=== PATIENT | male | born 1985 | race Caucasian/White ===

== ENCOUNTER 2024-04-28 09:25 | Outpatient (AMB) | payer OTHER, SELFPAY ==
[2024-04-28 09:33] VITALS: BP 108/60; PULSE 92; RESP 13; O2SAT 99; BMI 24.4
--- NOTE | 2024-04-28 09:33 | MHC.PC.OV ---
Vital Signs 04/28/24 09:33 Height 5 ft 6 in Weight 151 lb BMI 24.4 BP 108/60 Blood Pressure Location Lt brachial Position Sitting Respiration 13 Pulse 92 Pulse Source Pulse Oximeter Pulse Oximetry (%) 99 Oxygen Delivery Method Room Air Intake Visit Reasons: Est care/headaches Intake Note: Patient is here to establish care. Patient reports he is fasting if labs are needed today. Patient reports he has been experiencing headaches initiated with sobriety. Patient reports he associates the headaches with how I used to feel hung over, like there was a hole in my head. Patient states he has 2-3 headaches per week. Patient states he is not prescribed any medication however, his brother had sumatriptan, which helped with his headaches. Meat Molder Required: No Accompanied by: Self / Same As Patient Allergies codeine [Codeine] Allergy (Unknown, Unverified 03/06/23 16:37) VIOLENTLY ILL Tobacco use date assessed: 04/28/24 Dental Screening Dental Screen Date: 04/28/24 Did you have a dental visit in the last 12 months?: No Did you have a dental problem in the last 6 months where you did not have access to dental care?: No Was dental information given to patient?: Patient declined HPI HPI Comments History of Present Illness Details The patient is a 39 year old male with a past medical history of alcohol use, headaches presenting to establish care. Transferring from Dr Britton. Patient stopped drinking about 1.5 years. Since then he has noticed migraine like headaches 3x/week. Usually wakes up with headache. Sometimes feels off balance in the morning. Most often left temporal, pounding on dull, no vision changes. Last for hours. Used to use tylenol and ibuprofen with some relief but stopped working. Has used sumatriptan-if uses right at outset helps. Not supersenstive to light sound but if retracts from this does improve. Last eye exam 2021. Girlfriend says does not snore a lot. Kidney issues when younger. Wants to check labs. ROS see HPI PHYSICAL EXAM: GENERAL: Alert and oriented x 3. NAD EYES: EOMI. Anicteric. HENT: Moist mucous membranes. No scleral icterus. No cervical lymphadenopathy. LUNGS: Clear to auscultation bilaterally. CARDIOVASCULAR: Regular rate and rhythm. No murmur. No JVD. ABDOMEN: Soft, non-tender +bs EXTREMITIES: No edema. Non-tender. SKIN: No rashes or lesions. Warm. NEUROLOGIC: No focal neurological deficits. CN II-XII grossly intact PSYCHIATRIC: Cooperative. Appropriate mood and affect [facility] Medical History Alcoholism in recovery Depression Anxiety Ureter injury Surgical History History of ureter repair Family History Mother Thyroid disease Father Diabetes Cancer Paternal Grandmother Diabetes Cancer Paternal Grandfather Cancer Brother Thyroid disease Alcoholism Social History Household Members: None Housing: House Alcohol intake: former Year quit: 2022 Patient Tobacco Use Status: Never used Tobacco e-Cigarette/Vaping Use: Never Used service: No Current occupational status: employed Current occupation: Furniture store Cognitive needs: No Hearing needs: No Vision needs: Yes (wears glasses) Questionnaire PHQ-9 Over the last 2 weeks, how often have you been bothered by any of the following problems? 1. Little interest or pleasure in doing things: several days 2. Feeling down, depressed, or hopeless: several days 3. Trouble falling or staying asleep, or sleeping too much: several days 4. Feeling tired or having little energy: several days 5. Poor appetite or overeating: several days 6. Feeling bad about yourself - or that you are a failure or have let yourself or your family down: several days 7. Trouble concentrating on things, such as reading the newspaper or watching television: several days 8. Moving or speaking so slowly that other people could have noticed. Or the opposite - being so fidgety or restless that you have been moving around a lot more than usual: several days 9. Thoughts that you would be better off or of hurting yourself in some way: not at all Total score: 8 Depression Screening Interpretation: Positive Depression Screening Follow-up: Existing condition Depression Screening Done: Yes 36238 - PHQ-9 Billing: Yes Source: Developed by Drs. Akbar Alfaro, Sabiha B.Velasquez Pham and colleagues, with an educational rose marie from [employer]. Thrive Questionnaire Date Thrive assessed: 04/28/24 I am a: Patient What is your living situation today?: I have a steady place to live Within the past 12 months, did the food you bought not last and you didn't have the money to get more?: Never true Within the past 12 months, did you worry whether your food would run out before you got money to buy more?: Never true Do you have trouble paying for medicines?: No Do you have trouble getting transportation to medical appointments?: No Do you have trouble paying your heating and electricity bill?: No Do you have trouble taking care of your child, family member or friend?: No Do you have trouble with day-to-day activities such as bathing, preparing meals, shopping, managing finances, etc.?: No Are you currently unemployed and looking for a job?: No Are you interested in more education?: No Please select the resources that you would like help with: None Currently or been in a relationship where the following occur: No concerns reported THRIVE Score: 0 AUDIT C Alcohol Use Questionnaire (AUDIT-C) 1. How often do you have a drink containing alcohol?: Never 3. How often do you have six or more drinks on one occasion?: Never Total Score: 0 KEITH-7 AMB Questionnaire KEITH-7 Date KEITH - 7 assessed: 04/28/24 Feeling nervous, anxious, or on edge: 1 = Several days Not being able to stop or control worryin = Several days Worrying too much about different things: 1 = Several days Trouble relaxin = Several days Being so restless that it is hard to sit still: 1 = Several days Becoming easily annoyed or irritable: 1 = Several days Feeling afraid as if something awful might happen: 1 = Several days Total KEITH-7 score (0-4 normal; 5-9 mild; 10-14 moderate; 15-21 severe): 7 Source: Developed by Drs. Akbar Alfaro, Velasquez León and colleagues, with an educational rose marie from [employer]. KEITH-7 Assessment Billing KEITH-7 Assessment Tool: KEITH-7 Assessment 14109 Physical exam (Primary Care) Vital Signs: Last Vital Signs Pulse 92 04/28/24 09:33 Resp 13 04/28/24 09:33 BP 108/60 04/28/24 09:33 Pulse Ox 99 04/28/24 09:33 Oxygen Delivery Method Room Air 04/28/24 09:33 BMI result Body Mass Index 24.4 Tobacco/Smoking Status: Tobacco use Status Tobacco use date assessed 04/28/24 04/28/24 09:49 Patient Tobacco Use Status Never used Tobacco 04/28/24 09:57 e-Cigarette/Vaping Use Never Used 04/28/24 09:57 PHQ-9: PHQ-9 Score PHQ-9: Total score 8 05/03/24 10:36 Depression Screening Interpretation: Positive Depression Screening Follow-up: Existing condition Thrive Assessment: Date of Thrive Assessment Date Thrive assessed 04/28/24 04/28/24 09:49 Currently or been in a relationship where the following occur: No concerns reported Assessment and Plan Assessment & Plan (1) Encounter to establish care: Code(s): Z76.89 - Persons encountering health services in other specified circumstances Plan: 39 y/o to establish care. past medical, surgical, social and family history reviewed. chart updated (2) Alcoholism in recovery: Comment: 472 days sober -04/28/24 Code(s): F10.21 - Alcohol dependence, in remission (3) Increased severity of headaches: Code(s): R51.9 - Headache, unspecified (4) Increased frequency of headaches: Code(s): R51.9 - Headache, unspecified (5) Screening for metabolic disorder: Code(s): Z13.228 - Encounter for screening for other metabolic disorders (6) New onset headache: Code(s): R51.9 - Headache, unspecified Plan: MRI ordered. Labs ordered. Orders: Orders Lipid Panel 04/28/24 R51.9 - Headache, unspecified, Z13.0 - Encounter for screening for diseases of the blood and blood-forming organs and certain disorders involving the immune mechanism, Z13.220 - Encounter for screening for lipoid disorders, Z13.228 - Encounter for screening for other metabolic disorders Lyme IgG/IgM w/reflex to WB 04/28/24 R51.9 - Headache, unspecified, Z13.0 - Encounter for screening for diseases of the blood and blood-forming organs and certain disorders involving the immune mechanism, Z13.220 - Encounter for screening for lipoid disorders, Z13.228 - Encounter for screening for other metabolic disorders TSH reflex Free T4 04/28/24 R51.9 - Headache, unspecified, Z13.0 - Encounter for screening for diseases of the blood and blood-forming organs and certain disorders involving the immune mechanism, Z13.220 - Encounter for screening for lipoid disorders, Z13.228 - Encounter for screening for other metabolic disorders Complete Blood Count Auto Diff 04/28/24 R51.9 - Headache, unspecified, Z13.0 - Encounter for screening for diseases of the blood and blood-forming organs and certain disorders involving the immune mechanism, Z13.220 - Encounter for screening for lipoid disorders, Z13.228 - Encounter for screening for other metabolic disorders Comprehensive Met. Panel 04/28/24 R51.9 - Headache, unspecified, Z13.0 - Encounter for screening for diseases of the blood and blood-forming organs and certain disorders involving the immune mechanism, Z13.220 - Encounter for screening for lipoid disorders, Z13.228 - Encounter for screening for other metabolic disorders MR head/brain wo con 04/28/24 R51.9 - Headache, unspecified Medications: New sumatriptan succinate take 1 tab at onset of headache; if no relief, may repeat 1 tab after at least 2 hrs; max = 2 tabs/24 hrs PO 30 tabs 5RF Coding Level of Care Code New Pt Level 4 (05098) Diagnoses Encounter to establish care Z76.89 Alcoholism in recovery F10.21 Increased severity of headaches R51.9 Increased frequency of headaches R51.9 Screening for metabolic disorder Z13.228 New onset headache R51.9 Additional Codes KEITH-7 Assessment Billing - KEITH-7 Assessment Tool: KEITH-7 Assessment [id number] ([id number])
== END 2024-04-28 10:23 | disposition home or self-care (01) ==
PROVIDERS: PCP Internal Medicine; Visit Provider Internal Medicine
DX: R51.9 Headache, unspecified (principal); F10.21 Alcohol dependence, in remission; Z76.89 Persons encountering health services in other specified circumstances; Z13.228 Encounter for screening for other metabolic disorders
CPT/HCPCS: 99204

== ENCOUNTER 2024-04-28 10:49 | Outpatient (REF) | payer OTHER, SELFPAY ==
[2024-04-28 14:27] LABS: MANUAL DIFF FLAG NO
[2024-04-28 14:33] LABS: Basophils Absolute Auto 0.1 X10*3/uL (0.0-0.2); Basophils Percent Auto 1.3 % (0-2); Eosinophils Absolute Auto 0.1 X10*3/uL (0.0-0.4); Eosinophils Percent Auto 1.3 % (0-4); Hematocrit 43.4 % (42.0-52.0); Imm Gran Abs Auto 0.03 X10*3/uL (0.00-0.03); Imm Gran Pct Auto 0.7 % (0.0-0.4); Lymphocytes Absolute Auto 1.2 X10*3/uL (1.2-4.9); Lymphocytes Percent Auto 27.4 % (20-40); Mean Corpuscular HGB Conc 34.6 g/dl (31.0-36.0); Mean Corpuscular Hemoglobin 30.7 pg (27.0-33.0); Mean Corpuscular Volume 88.9 fL (80.0-98.0); Monocytes Absolute Auto 0.5 X10*3/uL (0.1-1.2); Monocytes Percent Auto 10.8 % (2-11); Neutrophils Absolute Auto 2.6 x10*3/uL (2.0-8.3); Neutrophils Percent Auto 58.5 % (45-73); Platelet Count 221 X10*3/uL (160-400); Red Blood Count 4.88 X10*6/uL (4.60-5.80); Red Cell Distribution Width 12.3 % (11.0-16.0); White Blood Count 4.5 X10*3/uL (4.8-10.8)
[2024-04-28 14:49] LABS: Alanine Aminotransferase 13 U/L (0-40); Albumin Level 4.6 g/dL (3.5-5.0); Alkaline Phosphatase 75 U/L (39-117); Anion Gap 11 (12-20); Aspartate Amino Transferase 16 U/L (5-37); Bilirubin Total 0.6 mg/dL (0.0-1.0); Blood Urea Nitrogen 11 mg/dL (9-16); Calcium 9.5 mg/dL (8.4-10.2); Carbon Dioxide 27 mmol/L (22-29); Chloride 105 mmol/L (96-108); Cholesterol 209 mg/dL (<200); Estimated Glomerular Filt Rate > 60; Glucose Random 91 mg/dL (60-115); HDL Cholesterol 53 mg/dL (>40); LDL Cholesterol Calculated 143 mg/dL (<100); Potassium 4.1 mmol/L (3.3-5.1); Sodium 139 mmol/L (135-145); Total Protein 7.4 g/dL (6.5-8.0); Triglycerides 67 mg/dL (<150)
[2024-04-28 15:08] LABS: TSH reflex Free T4 1.21 uIU/mL (0.32-4.0)
[2024-04-29 22:13] LABS: Lyme Abs Screen <0.90 index
== END 2024-04-28 10:50 | disposition home or self-care (01) ==
LOC: HO.WFDLDS 10:49
PROVIDERS: Visit Provider Internal Medicine
DX: R51.9 Headache, unspecified (principal); Z13.0 Encounter for screening for diseases of the blood and blood-forming organs and certain disorders involving the immune mechanism; Z13.220 Encounter for screening for lipoid disorders; Z13.228 Encounter for screening for other metabolic disorders
CPT/HCPCS: 36415; 80053; 80061; 84443; 85025; 86617; 86618

== ENCOUNTER 2024-06-19 11:13 | Outpatient (REF) | payer OTHER, SELFPAY ==
--- NOTE | ~2024-06-19 | MR_ITS ---
MRI OF THE BRAIN WITHOUT IV CONTRAST INDICATION: Headache. COMPARISON: None available. Her her TECHNIQUE: Multiplanar multisequence MR imaging of the brain was obtained without IV contrast. FINDINGS: There is no hydrocephalus, extra-axial surface collection, or herniation. No parenchymal signal abnormality. The major flow voids at the skull base are preserved. There is no acute infarct on diffusion-weighted imaging. There is no intracranial hemorrhage on the gradient recalled echo acquisition. The midline structures are normal. The cerebellar tonsils are normally positioned. The cerebellum and brainstem are normal. The craniocervical junction is normal. Osseous marrow signal intensity is homogenous. The visualized soft tissues are unremarkable. There is moderate mucosal thickening right maxillary sinus and the remaining paranasal sinuses are clear. The mastoid air cells are clear. MR/MR head/brain wo con IMPRESSION: * Unremarkable noncontrast MRI of the brain * There is moderate mucosal thickening within the right maxillary sinus. Electronically signed by: Andre Candelaria MD 07/08/2024 03:02 PM EDT
== END 2024-06-19 11:14 | disposition home or self-care (01) ==
LOC: HO.MRI 11:13
PROVIDERS: PCP Internal Medicine; Visit Provider Internal Medicine
DX: R51.9 Headache, unspecified (principal)
CPT/HCPCS: 70551

== ENCOUNTER 2024-09-28 10:57 | Outpatient (AMB) | payer OTHER, SELFPAY ==
--- NOTE | 2024-09-28 11:35 | AM.OFFVISMDC ---
Intake Intake Visit Reasons: annual pe Allergies codeine [Codeine] Allergy (Unknown, Unverified 03/06/23 16:37) VIOLENTLY ILL [facility] Medical History Alcoholism in recovery Depression Anxiety Ureter injury Surgical History History of ureter repair Family History Mother Thyroid disease Father Diabetes Cancer Paternal Grandmother Diabetes Cancer Paternal Grandfather Cancer Brother Thyroid disease Alcoholism Social History Household Members: None Housing: House 75 years or older and lives alone: No Alcohol intake: former Year quit: 2022 Patient Tobacco Use Status: Never used Tobacco e-Cigarette/Vaping Use: Never Used service: No Current occupational status: employed Current occupation: Furniture store Cognitive needs: No Hearing needs: No Vision needs: Yes (wears glasses) Questionnaire PHQ-9 Over the last 2 weeks, how often have you been bothered by any of the following problems? 1. Little interest or pleasure in doing things: not at all 2. Feeling down, depressed, or hopeless: several days 3. Trouble falling or staying asleep, or sleeping too much: not at all 4. Feeling tired or having little energy: several days 5. Poor appetite or overeating: not at all 6. Feeling bad about yourself - or that you are a failure or have let yourself or your family down: not at all 7. Trouble concentrating on things, such as reading the newspaper or watching television: not at all 8. Moving or speaking so slowly that other people could have noticed. Or the opposite - being so fidgety or restless that you have been moving around a lot more than usual: not at all 9. Thoughts that you would be better off or of hurting yourself in some way: not at all Total score: 2 Source: Developed by Drs. Akbar Alfaro, Sabiha Corrales, Velasquez Sanchez and colleagues, with an educational rose marie from [employer]. Quality Reporting (2019) Depression/Bipolar (159/160/161/177) PHQ-9: Total score: 2 Coding
[2024-09-28 11:40] VITALS: BP 102/70; PULSE 77; O2SAT 99; BMI 25.2
--- NOTE | 2024-09-28 11:40 | MHC.PC.OV ---
Vital Signs 09/28/24 11:40 Height 5 ft 6 in Weight 156 lb 2 oz BMI 25.2 BP 102/70 Blood Pressure Location Lt brachial Position Sitting Pulse 77 Pulse Source Pulse Oximeter Pulse Oximetry (%) 99 Oxygen Delivery Method Room Air Intake Visit Reasons: annual pe Intake Note: Physical. Still having migraines 3-4 times a week. Retaining Room Cutter Required: No Allergies codeine [Codeine] Allergy (Unknown, Verified 09/28/24 11:39) VIOLENTLY ILL Tobacco use date assessed: 04/28/24 Dental Screening Dental Screen Date: 04/28/24 HPI HPI Comments History of Present Illness Details The patient is a 39 year old male with a past medical history of alcohol use, headaches presenting for physical exam Neuro: sumatriptan still effective for headache. Would like to lessen frequency. MRI was reassuring. Some right sinus congestion. Patient stopped drinking about 2 years ago. Since then he has noticed migraine like headaches 3x/week. Usually wakes up with headache. Sometimes feels off balance in the morning. Most often left temporal, pounding on dull, no vision changes. Last for hours. Used to use tylenol and ibuprofen with some relief but stopped working. Not supersenstive to light sound but if retracts from this does improve. Last eye exam 2021. Girlfriend says does not snore a lot. Intermittently has right groin pain usually going from laying to sitting or sitting to standing, or lifting. Minocycline has been effective for acne. Has a persistent itchy patch above the left nipple. sometimes painful itchy feels like there is chronically an inground hair ROS see HPI PHYSICAL EXAM: GENERAL: Alert and oriented x 3. NAD EYES: EOMI. Anicteric. HENT: Moist mucous membranes. No scleral icterus. No cervical lymphadenopathy. LUNGS: Clear to auscultation bilaterally. CARDIOVASCULAR: Regular rate and rhythm. No murmur. No JVD. ABDOMEN: Soft, non-tender +bs : Normal penis and testes. Some inguinal softness without apparent bulge EXTREMITIES: No edema. Non-tender. SKIN: Left eczematous patch with mild fullness left areola NEUROLOGIC: No focal neurological deficits. CN II-XII grossly intact PSYCHIATRIC: Cooperative. Appropriate mood and affect [facility] Medical History Alcoholism in recovery Depression Anxiety Ureter injury Surgical History History of ureter repair Family History Mother Thyroid disease Father Diabetes Cancer Paternal Grandmother Diabetes Cancer Paternal Grandfather Cancer Brother Thyroid disease Alcoholism Social History Household Members: None Housing: House 75 years or older and lives alone: No Alcohol intake: former Year quit: 2022 Patient Tobacco Use Status: Never used Tobacco e-Cigarette/Vaping Use: Never Used service: No Current occupational status: employed Current occupation: Furniture store Cognitive needs: No Hearing needs: No Vision needs: Yes (wears glasses) Questionnaire PHQ-9 Over the last 2 weeks, how often have you been bothered by any of the following problems? 1. Little interest or pleasure in doing things: not at all 2. Feeling down, depressed, or hopeless: several days 3. Trouble falling or staying asleep, or sleeping too much: not at all 4. Feeling tired or having little energy: several days 5. Poor appetite or overeating: not at all 6. Feeling bad about yourself - or that you are a failure or have let yourself or your family down: not at all 7. Trouble concentrating on things, such as reading the newspaper or watching television: not at all 8. Moving or speaking so slowly that other people could have noticed. Or the opposite - being so fidgety or restless that you have been moving around a lot more than usual: not at all 9. Thoughts that you would be better off or of hurting yourself in some way: not at all Total score: 2 Depression Screening Interpretation: Negative Depression Screening Done: Yes 60520 - PHQ-9 Billing: Yes Source: Developed by Drs. Akbar Alfaro, Sabiha Corrales, Velasquez Sanchez and colleagues, with an educational rose marie from [employer]. Thrive Questionnaire Date Thrive assessed: 09/21/24 I am a: Patient What is your living situation today?: I have a steady place to live Within the past 12 months, did the food you bought not last and you didn't have the money to get more?: Never true Within the past 12 months, did you worry whether your food would run out before you got money to buy more?: Never true Do you have trouble paying for medicines?: No Do you have trouble getting transportation to medical appointments?: No Do you have trouble paying your heating and electricity bill?: No Do you have trouble taking care of your child, family member or friend?: No Do you have trouble with day-to-day activities such as bathing, preparing meals, shopping, managing finances, etc.?: No Are you currently unemployed and looking for a job?: No Are you interested in more education?: I choose not to answer this question Please select the resources that you would like help with: None Currently or been in a relationship where the following occur: No concerns reported THRIVE Score: 0 AUDIT C Alcohol Use Questionnaire (AUDIT-C) 1. How often do you have a drink containing alcohol?: Never Total Score: 0 KEITH-7 AMB Questionnaire KEITH-7 Date KEITH - 7 assessed: 04/28/24 Feeling nervous, anxious, or on edge: 0 = Not at all Not being able to stop or control worryin = Not at all Worrying too much about different things: 0 = Not at all Trouble relaxin = Not at all Being so restless that it is hard to sit still: 0 = Not at all Becoming easily annoyed or irritable: 0 = Not at all Feeling afraid as if something awful might happen: 0 = Not at all Total KEITH-7 score (0-4 normal; 5-9 mild; 10-14 moderate; 15-21 severe): 0 Source: Developed by Drs. Akbar Alfaro, Sabiha Corrales, Velasquez Sanchez and colleagues, with an educational rose marie from [employer]. Physical exam (Primary Care) Vital Signs: Last Vital Signs Pulse 77 09/28/24 11:40 BP 102/70 09/28/24 11:40 Pulse Ox 99 09/28/24 11:40 Oxygen Delivery Method Room Air 09/28/24 11:40 BMI result Body Mass Index 25.2 Tobacco/Smoking Status: Tobacco use Status Tobacco use date assessed 04/28/24 09/28/24 11:42 Patient Tobacco Use Status Never used Tobacco 09/28/24 11:42 e-Cigarette/Vaping Use Never Used 09/28/24 11:42 PHQ-9: PHQ-9 Score PHQ-9: Total score 2 09/28/24 11:42 Depression Screening Interpretation: Negative Thrive Assessment: Date of Thrive Assessment Date Thrive assessed 09/21/24 09/28/24 11:42 Currently or been in a relationship where the following occur: No concerns reported Coding Level of Care Code Est Pt Prev Care 40-64y(16697) Diagnoses Physical exam Z00.00 Breast lesion N64.9 Right inguinal hernia K40.90 Increased frequency of headaches R51.9 Additional Codes PHQ-9 - 60822 - PHQ-9 Billing: Yes ([id number]) Assessment & Plan Assessment & Plan (1) Physical exam: Code(s): Z00.00 - Encounter for general adult medical examination without abnormal findings Category: Medical Plan: Preventive measures for age discussed Declines flu vaccination (2) Breast lesion: Code(s): N64.9 - Disorder of breast, unspecified Category: Medical Plan: will refer to dermatology for evaluation (3) Right inguinal hernia: Code(s): K40.90 - Unilateral inguinal hernia, without obstruction or gangrene, not specified as recurrent Category: Medical Plan: referral to general surgery for evaluation of possible hernia (4) Increased frequency of headaches: Code(s): R51.9 - Headache, unspecified Category: Medical Plan: trial elavil Orders: Referrals General Surgery Referral K40.90 - Unilateral inguinal hernia, without obstruction or gangrene, not specified as recurrent Dermatology Referral N64.9 - Disorder of breast, unspecified, R21 - Rash and other nonspecific skin eruption Medications: New amitriptyline Take 1/2 tab oral once daily for one week then increase to one tab oral daily 25 mg PO BEDTIME 90 tabs 3RF Refilled sumatriptan succinate take 1 tab at onset of headache; if no relief, may repeat 1 tab after at least 2 hrs; max = 2 tabs/24 hrs PO 30 tabs 5RF
== END 2024-09-28 12:06 | disposition home or self-care (01) ==
PROVIDERS: PCP Internal Medicine; Visit Provider Internal Medicine
DX: Z00.00 Encounter for general adult medical examination without abnormal findings (principal); N64.9 Disorder of breast, unspecified; K40.90 Unilateral inguinal hernia, without obstruction or gangrene, not specified as recurrent; R51.9 Headache, unspecified

== ENCOUNTER → 2024-09-28 10:57 | Outpatient (BNVA) | payer OTHER, SELFPAY | PROVIDERS: PCP Internal Medicine; Visit Provider Internal Medicine | DX: Z00.01 Encounter for general adult medical examination with abnormal findings (principal); N64.9 Disorder of breast, unspecified; K40.90 Unilateral inguinal hernia, without obstruction or gangrene, not specified as recurrent; R51.9 Headache, unspecified | CPT/HCPCS: 96127 ==

== ENCOUNTER 2024-10-07 09:01 | Outpatient (AMB) | payer OTHER, SELFPAY ==
--- NOTE | 2024-10-07 09:04 | A.OFFVIS_ITS ---
Vital Signs 10/07/24 09:09 Height 5 ft 6 in Weight 154 lb BMI 24.9 BP 133/82 Blood Pressure Location Rt brachial Position Sitting Pulse 79 Intake Visit Reasons: Unilateral inguinal hernia Intake Note: Patient referred by pcp Dr. Leonie Armstrong for unilateral hernia. Patient c/o: RLQ pain for the past 3m. Denies diarrhea, constipation. Event Marketing Representative Required: No Accompanied by: Self / Same As Patient Allergies codeine [Codeine] Allergy (Unknown, Verified 10/07/24 09:09) VIOLENTLY ILL HPI Comments Details: Patient presents for evaluation of right groin swelling and pain. He has had this several months time. It is increasing and symptomatology presents here for further evaluation. Patient is otherwise tolerating a diet. He is having regular bowel habits. He does occasional strenuous activities at his place of employment. Chart was reviewed and patient evaluated. Patient had a distant alcohol abuse history but has not imbibed in over 2 years. Urologic surgery laparoscopically few years ago. [facility] Medical History Alcoholism in recovery Depression Anxiety Ureter injury Surgical History History of ureter repair Family History Mother Thyroid disease Father Diabetes Cancer Paternal Grandmother Diabetes Cancer Paternal Grandfather Cancer Brother Thyroid disease Alcoholism Social History Household Members: None Housing: House 75 years or older and lives alone: No Alcohol intake: former Year quit: 2022 Patient Tobacco Use Status: Never used Tobacco e-Cigarette/Vaping Use: Never Used service: No Current occupational status: employed Current occupation: Furniture store Cognitive needs: No Hearing needs: No Vision needs: Yes (wears glasses) Physical Exam Vital Signs: Last Vital Signs Pulse 79 10/07/24 09:09 BP 133/82 10/07/24 09:09 BMI result Body Mass Index 24.9 Chest Other: Chest breath sounds bilaterally, HS 1 in 2 GI Other: Patient was examined both supine and standing with Valsalva. Abdomen is soft and benign. Left groin negative. Genitalia within normal limits. Small reducible right inguinal hernia. Assessment & Plan Assessment & Plan (1) Right inguinal hernia: Code(s): K40.90 - Unilateral inguinal hernia, without obstruction or gangrene, not specified as recurrent Category: Surgical Plan Patient has been given therapeutic options which include conservative therapy and watchful waiting or repair. He would like to have this repaired. Risks, benefits, and alternatives of open right inguinal hernia repair with mesh were reviewed with the patient and included but not limited to bleeding, infection, recurrence, numbness, pain, scarring and the patient wishes to proceed. All questions answered. Arrangements were made for this. Coding Level of Care Code New Pt Level 5 (81399) Diagnoses Right inguinal hernia K40.90
[2024-10-07 09:09] VITALS: BP 133/82; PULSE 79; BMI 24.9
== END 2024-10-07 09:15 | disposition home or self-care (01) ==
PROVIDERS: PCP Internal Medicine; Referring Provider Internal Medicine; Visit Provider Surgery
DX: K40.90 Unilateral inguinal hernia, without obstruction or gangrene, not specified as recurrent (principal)
CPT/HCPCS: 99204

== ENCOUNTER → 2024-10-07 09:01 | Outpatient (BNVA) | payer OTHER, SELFPAY | PROVIDERS: PCP Internal Medicine; Referring Provider Internal Medicine; Visit Provider Surgery ==

== ENCOUNTER 2024-10-19 09:25 | Outpatient (AMB) | payer OTHER, SELFPAY ==
--- NOTE | 2024-10-19 09:26 | MHC.PC.OV ---
Intake Visit Reasons: Discuss Medication Intake Note: Discuss medication. Amitriptyline was giving pt side effects two weeks after taking medication, anxiety, tingling in hands, and suicidal thoughts. Water Quality Analyst Required: No Allergies amitriptyline Allergy (Severe, Verified 10/19/24 09:35) Anxiety codeine [Codeine] Allergy (Unknown, Verified 10/19/24 09:27) VIOLENTLY ILL Tobacco use date assessed: 10/19/24 Dental Screening Dental Screen Date: 04/28/24 HPI HPI Comments History of Present Illness Details The patient is a 39 year old male with a past medical history of alcohol use, headaches presenting for follow up Neuro: Started on elavil which SE he could not tolerated. Worsened depression. sumatriptan still effective for headache. Would like to lessen frequency. MRI was reassuring. Some right sinus congestion. Patient stopped drinking about 2 years ago. Since then he has noticed migraine like headaches 3x/week. Usually wakes up with headache. Sometimes feels off balance in the morning. Most often left temporal, pounding on dull, no vision changes. Last for hours. Used to use tylenol and ibuprofen with some relief but stopped working. Not supersenstive to light sound but if retracts from this does improve. Last eye exam 2021. Girlfriend says does not snore a lot. Anxiety/depression: Would like to restart SSRI Minocycline has been effective for acne. Has a persistent itchy patch above the left nipple. sometimes painful itchy feels like there is chronically an inground hair ROS see HPI PHYSICAL EXAM: GENERAL: Alert and oriented x 3. NAD EYES: EOMI. Anicteric. HENT: Moist mucous membranes. No scleral icterus. No cervical lymphadenopathy. LUNGS: Clear to auscultation bilaterally. CARDIOVASCULAR: Regular rate and rhythm. No murmur. No JVD. ABDOMEN: Soft, non-tender +bs : Normal penis and testes. Some inguinal softness without apparent bulge EXTREMITIES: No edema. Non-tender. SKIN: Left eczematous patch with mild fullness left areola NEUROLOGIC: No focal neurological deficits. CN II-XII grossly intact PSYCHIATRIC: Cooperative. Appropriate mood and affect [facility] Medical History (Updated 10/30/24 @ 19:06 by Patti Benson MD) Alcoholism in recovery Depression Anxiety Ureter injury Surgical History History of ureter repair Family History Mother Thyroid disease Father Diabetes Cancer Paternal Grandmother Diabetes Cancer Paternal Grandfather Cancer Brother Thyroid disease Alcoholism Social History (Updated 10/19/24 @ 09:28 by Amarilis Sneed CMA) Household Members: None Housing: House 75 years or older and lives alone: No Alcohol intake: former Year quit: 2022 Patient Tobacco Use Status: Never used Tobacco e-Cigarette/Vaping Use: Never Used Use of substances other than those prescribed or required for medical reasons: No service: No Current occupational status: employed Current occupation: Furniture store Cognitive needs: No Hearing needs: No Vision needs: Yes (wears glasses) Questionnaire Thrive Questionnaire Date Thrive assessed: 09/21/24 I am a: Patient What is your living situation today?: I have a steady place to live Within the past 12 months, did the food you bought not last and you didn't have the money to get more?: Never true Within the past 12 months, did you worry whether your food would run out before you got money to buy more?: Never true Do you have trouble paying for medicines?: No Do you have trouble getting transportation to medical appointments?: No Do you have trouble paying your heating and electricity bill?: No Do you have trouble taking care of your child, family member or friend?: No Do you have trouble with day-to-day activities such as bathing, preparing meals, shopping, managing finances, etc.?: No Are you currently unemployed and looking for a job?: No Are you interested in more education?: I choose not to answer this question Please select the resources that you would like help with: None Currently or been in a relationship where the following occur: No concerns reported THRIVE Score: 0 AUDIT C Alcohol Use Questionnaire (AUDIT-C) 3. How often do you have six or more drinks on one occasion?: Never Total Score: 0 KEITH-7 AMB Questionnaire KEITH-7 Date KEITH - 7 assessed: 04/28/24 Source: Developed by Drs. Akbar Alfaro, Sabiha Corrales, Velasquez Sanchez and colleagues, with an educational rose marie from [employer]. Physical exam (Primary Care) Tobacco/Smoking Status: Tobacco use Status Tobacco use date assessed 10/19/24 10/19/24 09:36 Patient Tobacco Use Status Never used Tobacco 10/19/24 09:36 e-Cigarette/Vaping Use Never Used 10/19/24 09:36 Thrive Assessment: Date of Thrive Assessment Date Thrive assessed 09/21/24 10/19/24 09:36 Currently or been in a relationship where the following occur: No concerns reported Coding Level of Care Code Est Pt Level 4 (92302) Diagnoses Moderate episode of recurrent major depressive disorder F33.1 Depression Type: major depressive disorder Major depression recurrence: recurrent Active/Remission status: currently active Major depression episode severity: moderate Assessment & Plan Assessment & Plan (1) Depression: Code(s): F32.A - Depression, unspecified Category: Medical Qualifiers: Depression Type: major depressive disorder Major depression recurrence: recurrent Active/Remission status: currently active Major depression episode severity: moderate Qualified Code(s): F33.1 - Major depressive disorder, recurrent, moderate Plan: Start prozac 10mg daily then increase to 20mg daily Continue imitrex for headaches Medications: New fluoxetine (Prozac) then increase to 20mg daily 10 mg PO DAILY 10 caps 0RF fluoxetine 20 mg PO DAILY 90 caps 3RF
== END 2024-10-19 10:04 | disposition home or self-care (01) ==
PROVIDERS: PCP Internal Medicine; Visit Provider Internal Medicine
DX: F33.1 Major depressive disorder, recurrent, moderate (principal)

== ENCOUNTER → 2024-10-19 09:25 | Outpatient (BNVA) | payer OTHER, SELFPAY | PROVIDERS: PCP Internal Medicine; Visit Provider Internal Medicine ==

== ENCOUNTER 2025-10-01 15:54 | Outpatient (AMB) | payer BC, SELFPAY ==
--- NOTE | 2025-10-01 15:57 | A.OFFPC_ITS ---
Vital Signs 10/01/25 15:58 Height 5 ft 6 in Weight 171 lb 4 oz BMI 27.6 BP 106/76 Blood Pressure Location Lt brachial Position Sitting Respiration 14 Pulse 75 Pulse Source Pulse Oximeter Pulse Oximetry (%) 95 Oxygen Delivery Method Room Air Intake Visit Reasons: cpe Intake Note: Medication follow up General Ledger Bookkeeper Required: No Allergies amitriptyline Allergy (Severe, Verified 10/01/25 16:03) Anxiety codeine (Codeine) Allergy (Unknown, Verified 10/01/25 16:03) VIOLENTLY ILL Tobacco use date assessed: 10/01/25 Dental Screening Dental Screen Date: 10/01/25 Did you have a dental visit in the last 12 months?: Yes Did you have a dental problem in the last 6 months where you did not have access to dental care?: No Was dental information given to patient?: Patient has dentist HPI HPI Comments History of Present Illness Details The patient is a 39 year old male with a past medical history of alcohol use, headaches presenting for follow up Neuro: Started on elavil which SE he could not tolerated. Worsened depression. Still ghaving multiple headache days per week. Generally wakes up with them. sumatriptan still effective for headache. Would like to lessen frequency. MRI was reassuring. Some right sinus congestion. Patient stopped drinking about 2 years ago. Since then he has noticed migraine like headaches 3x/week. Usually wakes up with headache. Sometimes feels off balance in the morning. Most often left temporal, pounding on dull, no vision changes. Last for hours. Used to use tylenol and ibuprofen with some relief but stopped working. Not supersenstive to light sound but if retracts from this does improve. Last eye exam 2021. Anxiety/depression: Doing very well on prozac 10mg daily. Minocycline previously for acne ROS see HPI PHYSICAL EXAM: GENERAL: Alert and oriented x 3. NAD EYES: EOMI. Anicteric. HENT: Moist mucous membranes. No scleral icterus. No cervical lymphadenopathy. LUNGS: Clear to auscultation bilaterally. CARDIOVASCULAR: Regular rate and rhythm. No murmur. No JVD. ABDOMEN: Soft, non-tender +bs : Normal penis and testes. Some inguinal softness without apparent bulge EXTREMITIES: No edema. Non-tender. SKIN: Left eczematous patch with mild fullness left areola NEUROLOGIC: No focal neurological deficits. CN II-XII grossly intact PSYCHIATRIC: Cooperative. Appropriate mood and affect [facility] Medical History (Updated 10/02/25 @ 09:29 by Patti Benson MD) New onset headache Alcoholism in recovery Depression Anxiety Ureter injury Surgical History History of ureter repair Family History Mother Thyroid disease Father Diabetes Cancer Paternal Grandmother Diabetes Cancer Paternal Grandfather Cancer Brother Thyroid disease Alcoholism Social History Household Members: None Housing: House 75 years or older and lives alone: No Alcohol intake: former Year quit: 2022 Patient Tobacco Use Status: Never used Tobacco e-Cigarette/Vaping Use: Never Used service: No Current occupational status: employed Current occupation: Furniture store Current occupational exposures/hazards: No Cognitive needs: No Hearing needs: No Vision needs: Yes (wears glasses) Questionnaire PHQ-9 Over the last 2 weeks, how often have you been bothered by any of the following problems? 1. Little interest or pleasure in doing things: not at all 2. Feeling down, depressed, or hopeless: not at all 3. Trouble falling or staying asleep, or sleeping too much: not at all 4. Feeling tired or having little energy: not at all 5. Poor appetite or overeating: not at all 6. Feeling bad about yourself - or that you are a failure or have let yourself or your family down: not at all 7. Trouble concentrating on things, such as reading the newspaper or watching television: not at all 8. Moving or speaking so slowly that other people could have noticed. Or the opposite - being so fidgety or restless that you have been moving around a lot more than usual: not at all 9. Thoughts that you would be better off or of hurting yourself in some way: not at all Total score: 0 Depression Screening Interpretation: Negative Depression Screening Done: Yes 88699 - PHQ-9 Billing: Yes Source: Developed by Drs. Akbar Alfaro, Sabiha Corrales, Velasquez Sanchez and colleagues, with an educational rose marie from [employer]. Thrive Questionnaire Date Thrive assessed: 09/21/24 I am a: Patient What is your living situation today?: I have a steady place to live Within the past 12 months, did the food you bought not last and you didn't have the money to get more?: Never true Within the past 12 months, did you worry whether your food would run out before you got money to buy more?: Never true Do you have trouble paying for medicines?: No Do you have trouble getting transportation to medical appointments?: No Do you have trouble paying your heating and electricity bill?: No Do you have trouble taking care of your child, family member or friend?: No Do you have trouble with day-to-day activities such as bathing, preparing meals, shopping, managing finances, etc.?: No Are you currently unemployed and looking for a job?: No Are you interested in more education?: I choose not to answer this question Please select the resources that you would like help with: None Currently or been in a relationship where the following occur: No concerns reported THRIVE Score: 0 AUDIT C Alcohol Use Questionnaire (AUDIT-C) 1. How often do you have a drink containing alcohol?: Never 3. How often do you have six or more drinks on one occasion?: Never Total Score: 0 KEITH-7 AMB Questionnaire KEITH-7 Date KEITH - 7 assessed: 10/01/25 Feeling nervous, anxious, or on edge: 0 = Not at all Not being able to stop or control worryin = Not at all Worrying too much about different things: 0 = Not at all Trouble relaxin = Not at all Being so restless that it is hard to sit still: 0 = Not at all Becoming easily annoyed or irritable: 0 = Not at all Feeling afraid as if something awful might happen: 0 = Not at all Total KEITH-7 score (0-4 normal; 5-9 mild; 10-14 moderate; 15-21 severe): 0 Source: Developed by Drs. Akbar Alfaro, Sabiha Corrales, Velasquez Sanchez and colleagues, with an educational rose marie from [employer]. Physical exam (Primary Care) Vital Signs: Last Vital Signs Pulse 75 10/01/25 15:58 Resp 14 10/01/25 15:58 BP 106/76 10/01/25 15:58 Pulse Ox 95 10/01/25 15:58 Oxygen Delivery Method Room Air 10/01/25 15:58 BMI result Body Mass Index 27.6 Tobacco/Smoking Status: Tobacco use Status Tobacco use date assessed 10/01/25 10/01/25 16:07 Patient Tobacco Use Status Never used Tobacco 10/01/25 16:01 e-Cigarette/Vaping Use Never Used 10/01/25 16:01 PHQ-9: PHQ-9 Score PHQ-9: Total score 0 10/01/25 16:11 Depression Screening Interpretation: Negative Thrive Assessment: Date of Thrive Assessment Date Thrive assessed 09/21/24 10/01/25 16:01 Currently or been in a relationship where the following occur: No concerns reported Coding Level of Care Code Est Pt Level 4 (44700) Diagnoses Moderate episode of recurrent major depressive disorder F33.1 Depression Type: major depressive disorder Major depression recurrence: recurrent Active/Remission status: currently active Major depression episode severity: moderate Migraine without aura and without status migrainosus, not intractable G43.009 Migraine type: migraine (< 15 days per month) without aura Status migrainosus presence: without status migrainosus Intractability: not intractable Additional Codes PHQ-9 - 30073 - PHQ-9 Billing: Yes ([id number]) Assessment & Plan Assessment & Plan (1) Depression: Code(s): F32.A - Depression, unspecified Category: Medical Qualifiers: Depression Type: major depressive disorder Major depression recurrence: recurrent Active/Remission status: currently active Major depression episode severity: moderate Qualified Code(s): F33.1 - Major depressive disorder, recurrent, moderate (2) Migraine: Code(s): G43.909 - Migraine, unspecified, not intractable, without status migrainosus Category: Medical Qualifiers: Migraine type: migraine (< 15 days per month) without aura Status migrainosus presence: without status migrainosus Intractability: not intractable Qualified Code(s): G43.009 - Migraine without aura, not intractable, without status migrainosus Plan Headaches-worse in the morning. Snoring intermittent. Check sleep study. sumatriptan is effective but headaches still frequent Depression is well controlled on prozac Orders: Orders RT home sleep study 10/01/25 G43.909 - Migraine, unspecified, not intractable, without status migrainosus, R06.83 - Snoring Medications: Changed From fluoxetine (Prozac) then increase to 20mg daily 10 mg PO DAILY 10 caps 0RF To fluoxetine (Prozac) 10 mg PO DAILY 90 caps 3RF Refilled sumatriptan succinate take 1 tab at onset of headache; if no relief, may repeat 1 tab after at least 2 hrs; max = 2 tabs/24 hrs PO 30 tabs 5RF
[2025-10-01 15:58] VITALS: BP 106/76; PULSE 75; RESP 14; O2SAT 95; BMI 27.6
--- OUTSIDE RECORDS SUMMARY | 2025-10-01 19:44 | XMS_ITS | Clinical Summary ---
Author Organization [facility] Address [address] [place] [id number] Phone Care Team Providers Care Watch Hairspring Assembler Name Role Phone Pcp, Unknown Primary Care Provider Unavailabl e Allergies Active Allergy Reactions Criticality Noted Date Comments Codeine GI Upset 06/12/2024 Medications minocycline (MINOCIN) 100 MG capsule Take 1 capsule by mouth every morning. 05/27/2024 Active SUMAtriptan (IMITREX) 100 MG tablet TAKE 1 TAB AT ONSET OF HEADACHE IF NO RELIEF MAY REPEAT 1 TAB AFTER AT LEAST 2 HRS MAX 2 TABS/24 HRS 05/25/2024 Active Bacillus coagulans-inuli n 1 billion-250 cell-mg Cap Take 250 mg by mouth daily. Active Active Problems No known active problems Immunizations No known immunizations Social History Tobacco Use Types Packs/Day Years Used Date Smoking Tobacco: Every Day Smokeless Tobacco: Never Tobacco Cessation:Ready to Q uit: Not Asked; Counseling Given: Not Answered Comments:Former cigarette smoker, 7 yrs ago. Does vape nicotine daily Education Answer Date Recorded Are you interested in more education? Not on ally e 06/12/2024 Are you concerned about learning? Not on file 06/12/2024 No 06/12/2024 No 06/12/2024 Digital Access Answer Date Recorded No 06/12/2024 No 06/12/2024 Reliable internet access at home? Not on file 06/12/2024 Device with a working camera? Not on file Sex and Gender Information Value Date Recorded Sex Assigned at Not on file Legal Sex Male 10:30 AM EDT Gender Identity Not on file Sexual Orientation Not on file Last Filed Vital Signs Vital Sign Reading Time Taken Comments Blood Pressure 124/81 06/12/2024 10:54 AM EDT Pulse 70 06/12/2024 10:54 AM EDT Temperature 36.7 C (98.1 F) 06/12/2024 10:54 AM EDT Respiratory Rate 16 06/12/2024 10:54 AM EDT Oxygen Saturation 98% 06/12/2024 10:54 AM EDT Inhaled Oxygen Concentration - - Weight - - Height - - Body Mass Index - - Plan of Treatment Health Maintenance Due Date Last Done Comments Adult Td,Tdap Booster 1984 LIPID PANEL 1984 DEPRESSION SCREENING 1996 SMOKING Hx and SMOKELESS TOB ACCO SCREENING 1997 HEPATITIS C SCREENING 2002 HIV ONE-TIME SCREENING (18-6 5 YEARS) 2002 PNEUMOCOCCAL VACCINES (0-49 years) (1 of 2 - PCV) 2003 INFLUENZA VACCINE (#1) 2025 COVID-19 VACCINE (1 - 2024-2 6 season) 2025 HEPATITIS A VACCINES Aged Out No long er eligible based on patient's age to complete this topic HIB VACCINES Aged Out No longer eligi ble based on patient's age to complete this topic MENINGOCOCCAL VACCINES (ACWY) Aged Out No longer eligible based on patient's age to complete this topic MENINGOCOCCAL VACCINES (B) Aged Out N o longer eligible based on patient's age to complete this topic Medical Devices Not on file Insurance [employer] [facility] E[facility] EPO [facility] POS EPO [facility] POS EPO [facility] [employer] Address: [id number] [place] [id number] [facility] [employer] Address: [facility] [id number] [place] [id number] Care Teams Watch Hairspring Assembler Relationship Specialty Start Date End Date Pcp, Unknown PCP - General 06/12/24 Additional Source Comments The information contained in this document represents components of the legal health record. It is not the complete legal health record.[facility]
== END 2025-10-01 16:21 | disposition home or self-care (01) ==
LOC: HO.HMCFM 15:55
PROVIDERS: PCP Internal Medicine; Visit Provider Internal Medicine
DX: F33.1 Major depressive disorder, recurrent, moderate (principal); G43.009 Migraine without aura, not intractable, without status migrainosus

== ENCOUNTER → 2025-10-01 15:54 | Outpatient (BNVA) | payer BC, SELFPAY | PROVIDERS: PCP Internal Medicine; Visit Provider Internal Medicine | DX: F33.1 Major depressive disorder, recurrent, moderate (principal); G43.009 Migraine without aura, not intractable, without status migrainosus; R06.83 Snoring; Z79.899 Other long term (current) drug therapy | CPT/HCPCS: 96127 ==